=== PATIENT | female | born 1985 | race Hispanic/Latino ===

== ENCOUNTER 2025-04-25 14:54 | Emergency (ER) | payer OTHER, SELFPAY ==
[2025-04-25 14:58] VITALS: BP 146/91
[2025-04-25 15:35] VITALS: BMI 29.3
--- NOTE | 2025-04-25 16:14 | ED.GENMED ---
History of Present Illness
General
Chief Complaint: Abdominal Pain
Source: patient
Exam Limitations: none
Time Seen by Provider: 04/25/25 15:27
Nursing documentation reviewed up to this point in time: agreed with
History of Present Illness
History of Present Illness:
Patient presents to ED secondary to persistent 2-week history of upper abdominal pain along with diarrhea, which started while she was vacationing at [place]. Her has experienced similar symptoms, but his symptoms have resolved. Patient
is concerned that her abdominal pain described as 'reflux' with burning sensation, is continuing despite the fact that diarrhea has now resolved. Patient has been taking wdfe-gyg-jfpaxsz omeprazole and Prilosec without improving symptoms. Denies
fever or chills. Denies vomiting. Denies dizziness. Denies shortness of breath. Denies previous history of similar symptoms.
Past History
Past History
ED Past Medical History: None
ED Past Surgical History: Tonsilectomy and Other
Social History
Tobacco: Non-smoker
Alcohol: None
Drug: None
Personal:
Living: with family
Employment: Employed
Family History
Family History: Other (Noncontributory)
Review of Systems
Review of Systems
Allergies reviewed?: Yes
All Other Systems: ROS reviewed and negative except as documented in HPI and ROS
Constitutional: Reports no symptoms
Respiratory: Reports no symptoms
Cardiac: Reports no symptoms
ABD/GI: Reports abdominal pain; Denies vomiting or diarrhea
Musculoskeletal: Reports no symptoms
Skin: Reports no symptoms
Neurological: Reports no symptoms
Phy Exam
Physical Exam
Physical Exam:
Physical Exam
General: no apparent distress, not acutely ill. afebrile.
Head: nc/at. eomi
Neck: supple. no meningeal signs.
Heart: s1/s2 regular rate and rhythm
Lungs: no acute respiratory distress. clear bilaterally
Abdomen: normal bowel sounds. not tender.
Neuro: alert and oriented x 3. no focal neurological deficits
Skin: no rash
Psychiatric: well kept. interactive and cooperative
Extremities: no edema. no calf tenderness.
Course
Orders/Labs/Results
Orders:
Orders
04/25/25 16:08
Ketorolac [Toradol] 15 mg IV NOW STA
Pantoprazole [Protonix IV] 40 mg IV NOW STA
US Abdomen Complete/Upper Urgent
Comment:
Reason For Exam: upper abd pain
04/25/25 16:09
0.9% Sodium Chloride 500 ml [Nss] 500 ml IV BOLUS
04/25/25 16:21
Complete Blood Count/No Diff Urgent
Comprehensive Metabolic Panel Urgent
HCG, Serum Qualitative Screen Urgent
Comment: ADD ON
Lipase Urgent
Magnesium Urgent
04/25/25 17:24
Add On- LAB Urgent
Tests Added?: serum B-HCG, qualitative
Abnormal Lab Results
04/25/25
16:21
Chloride 108 H mmol/L
(98-107)
04/25/25 16:21
04/25/25 16:21
Vital Signs
Initial and Last Documented VS:
Initial Vital Signs
Temp Pulse Resp BP Pulse Ox
98.6 F 73 16 146/91 100
04/25/25 14:58 04/25/25 14:58 04/25/25 14:58 04/25/25 14:58 04/25/25 14:58
Last Documented Vital Signs
Temp Pulse Resp BP Pulse Ox
98.6 F 73 16 146/91 100
04/25/25 14:58 04/25/25 14:58 04/25/25 14:58 04/25/25 14:58 04/25/25 16:17
MDM/Problems Addressed
MDM/Problems Addressed:
Ultrasound report reviewed and discussed with patient. Patient given copy of ultrasound report, to be discussed with her primary care physician. In the meantime, patient will be advised to continue PPI as an outpatient, along with prescribed
Carafate, as well as diet modification. In addition, patient will be given referral to GI service for an outpatient consultation. Return precautions provided, i.e. fever/worsening pain/vomiting. Patient expresses understanding at time of
discharge.
*Pulse Oximetry
SaO2: 100
Oxygen Mode of Delivery: Room air
Patient hypoxic: no
*Critical Care Note
Total Time (30-74mins, 75-104mins- exclusive of procedures): Not Applicable
ED Attending Note
-
Portions of this chart may have been created with voice recognition software.� Occasional wrong word or��sound alike� substitutions may have occurred due to the inherent limitations of voice recognition software.
Discharge Plan
Departure
Patient Disposition: Home (Routine Discharge)
Date of Disposition: 04/25/25
Time of Disposition: 18:11
Patient with high blood pressure during this ER visit?: Yes
Condition: Good
Discharge Problem:
Abdominal pain
Instructions: Low-fat diet, Abdominal Pain
Prescriptions:
New
sucralfate [Carafate] 100 mg/mL suspension
10 ml PO ACHS 7 Days Qty: 280 0RF
No Action
Tablet
1 tab PO DAILY
ferrous sulfate [FeroSul] 325 MG tablet
325 mg PO DAILY Qty: 30 0RF
calcium carbonate [Antacid (calcium carbonate)] 1 TABLET tablet,chewable
2 tab PO Q4HPRN PRN (Reason: heartburn) 0RF
ibuprofen 600 MG tablet
600 mg PO Q4HPRN PRN (Reason: moderate pain/cramps) 0RF
Referrals:
Daljit Martínez DO [Family Provider, Family Practice]
Amadeo Carolina DO [Active, Gastroenterology]
Activity Restrictions/Additional Instructions:
As discussed, please follow-up with your primary care physician and/or referred GI physician for further evaluation treatment. Please return to ED with worsening symptoms, i.e. fever/worsening pain/vomiting. Your prescription has been sent
electronically to [facility] pharmacy in [place].
Interventions
Interventions:
*Risk Screen - Suicide Last Done: 04/25/25 14:58
*General Assessment Last Done: 04/25/25 15:35
*Neglect/Abuse Screening Last Done: 04/25/25 14:58
*ED- Fall Risk Assessment Last Done: 04/25/25 15:35
*ED COVID-19 Vaccine History Last Done: 04/25/25 15:35
*Nursing Disposition Last Done: 04/25/25 18:20
DF-Nqgdff-Evhzzhsfiy Assessment Last Done: 04/25/25 15:35
Discharge Date and Time
Discharge Date/Time: 04/25/25 18:21
Print Language: ROMANIAN
[2025-04-25] MEDS: NSS 500 IV (16:25)
[2025-04-25] MEDS: TORADOL 15 MG IV (16:25)
[2025-04-25] MEDS: PROTONIX IV 40 MG IV (16:26)
[2025-04-25 16:54] LABS: ALT (SGPT) 15 U/L (0-35); AST (SGOT) 18 U/L (14-36); Albumin 4.2 g/dl (3.5-5.0); Alkaline Phosphatase 53 U/L (38-126); Blood Urea Nitrogen 14 mg/dl (7-17); Calcium 8.9 mg/dl (8.4-10.2); Carbon Dioxide 24 mmol/L (22-30); Chloride 108 mmol/L (98-107); Estimated Creatinine Clearance 108 ml/min; Glucose 86 mg/dl (70-99); Hematocrit 37.5 % (37.0-47.0); Hemoglobin 12.8 g/dL (12.0-16.0); Magnesium 2.0 mg/dl (1.6-2.3); Mean Corp Hgb Conc. 34.1 g/dL (33.0-37.0); Mean Corpuscular Volume 88.7 fL (81.0-99.0); Platelet Count 303 10^3/uL (130-400); Potassium 4.2 mmol/L (3.5-5.1); Red Cell Dist. Width 12.5 % (11.5-14.5); Sodium 138 mmol/L (135-145); Total Protein 6.9 g/dl (6.3-8.2); eGFR > 60.00
[2025-04-25 16:56] LABS: Lipase 80 U/L (23-300)
[2025-04-25 18:03] LABS: HCG, Serum Qualitative Screen Negative
== END 2025-04-25 18:21 | disposition home or self-care (01) ==
LOC: EMR 14:54
PROVIDERS: EMERGENCY PHYSICIAN Emergency Medicine; FAMILY PHYSICIAN Family Medicine
DX: R10.10 Upper abdominal pain, unspecified (principal)
CPT/HCPCS: 96374; 96375; 96361; 99284; 76700; 80053; 83690; 83735; 84703; 85027